=== PATIENT | female | born 1955 | race Caucasian/White ===

== ENCOUNTER → 2018-01-25 | Outpatient (CLI) | payer OTHER ==
[~2018-01-25] MED LIST: 1-ME1LIQ PO; ALPR0.25 PO; ALPR0.5T3 PO; AMBI10TA PO; CETI10 PO; CETI10CH PO; CHLO25TA2 PO; CLON.5 PO; DIOV320T PO; ESTR0.4T PO; ESTR1TAB68 PO; HYDR12.56 PO; METO1TAB43 PO; OMEP20TA93 PO; OXYC1SOL5 PO; RIVA10 PO; TOPR25TA2 PO; ULTR50TA PO; VALS1TAB70 PO; Z.0.COMMODE-3:1; Z.0.WALKERFRONT
[2018-01-25 09:38] LABS: HEMATOCRIT 34.6 % (35.0-46.0); HEMOGLOBIN 11.9 GM/DL (11.6-15.3); MEAN CELL VOLUME 90.6 FL (80.0-100.0); MEAN CORPUSCULAR HEMOGLOBIN 31.2 PG (27.0-34.0); MEAN CORPUSCULAR HGB CONC 34.4 % (32.0-36.0); MEAN PLATELET VOLUME 8.6 FL (7.0-11.0); PLATELET COUNT 316 TH/MM3 (150-450); RED BLOOD COUNT 3.82 MIL/MM3 (4.00-5.30); RED CELL DISTRIBUTION WIDTH 13.1 % (11.6-17.2); WHITE BLOOD COUNT 8.7 TH/MM3 (4.0-11.0)
[2018-01-25 09:47] LABS: PROTHROMBIN TIME - PATIENT 9.7 SEC (9.8-11.6)
[2018-01-25 10:00] LABS: BICARBONATE 25.5 MEQ/L (21.0-32.0); CALCIUM 8.9 MG/DL (8.5-10.1); CREATININE 0.65 MG/DL (0.50-1.00)
[2018-01-25 10:16] LABS: BILIRUBIN, URINE NEG (NEG); BLOOD, URINE SMALL (NEG); GLUCOSE,URINE NEG (NEG); KETONE, URINE NEG (NEG); NITRITE,URINE NEG (NEG); SQUAMOUS EPITHELIAL CELL URINE 1 /hpf (0-5); URINE COLOR Straw (YELLW/STRAW); URINE LEUKOCYTE ESTERASE NEG (NEG)
== END ==
LOC: CPRE 08:04
PROVIDERS: ATTEND Orthopaedic Surgery
DX: Z01.812 Encounter for preprocedural laboratory examination (principal); Z01.818 Encounter for other preprocedural examination; M17.12 Unilateral primary osteoarthritis, left knee; M79.609 Pain in unspecified limb; I10 Essential (primary) hypertension
CPT/HCPCS: 36415; 80048; 81001; 85027; 85610; 85730

== ENCOUNTER 2018-02-08 07:31 | Inpatient (IN) ==
[2018-02-11 09:39] VITALS: RESP 18
[2018-02-11 15:22] VITALS: BP 102/56; PULSE 100; TEMP 97.6; O2SAT 98
== END 2018-02-11 13:13 ==
LOC: HSDI 07:31 → N06 18:39
PROVIDERS: ADMIT Orthopaedic Surgery; ATTEND Orthopaedic Surgery